=== PATIENT | male | born 1975 | race Caucasian/White ===

== ENCOUNTER 2017-11-17 22:09 | Emergency (ER) | payer OTHER ==
[~2017-11-17] VITALS: Ht 170.2 cm; Wt 90.7 kg
== END 2017-11-18 00:02 | disposition home or self-care (01) ==
LOC: ER 22:09
DX: S61.412A Laceration without foreign body of left hand, initial encounter (principal); W45.8XXA Other foreign body or object entering through skin, initial encounter; Y93.89 Activity, other specified; Y92.89 Other specified places as the place of occurrence of the external cause; Y99.8 Other external cause status

== ENCOUNTER → 2017-11-23 | Emergency (ER) | payer OTHER | END | disposition left against medical advice (07) | LOC: ER 21:27 | DX: Z53.20 Procedure and treatment not carried out because of patient's decision for unspecified reasons (principal) ==

== ENCOUNTER 2020-12-12 13:53 | Emergency (ER) | payer OTHER ==
[~2020-12-12] VITALS: Ht 175.3 cm; Wt 108.9 kg
[2020-12-12] MEDS ORDERED: LIPITOR20 MG PO (14:48)
[2020-12-12] MEDS ORDERED: GLUMETZA500 MG PO (14:48)
[2020-12-12] MEDS ORDERED: COZAAR25 MG (14:48)
[2020-12-12] MEDS ORDERED: IBU800 MG PO (18:40)
== END 2020-12-12 18:58 | disposition home or self-care (01) ==
LOC: ER 13:53
DX: R06.6 Hiccough (principal); Z20.822 Contact with and (suspected) exposure to COVID-19